=== PATIENT | male | born 1965 | race Caucasian/White ===

== ENCOUNTER 2024-03-11 16:04 | Emergency (ER) | payer OTHER ==
[~2024-03-11] VITALS: Ht 182.9 cm; Wt 150.1 kg
[2024-03-11 17:03] LABS: INFLUENZA B NAA NEGATIVE (NEGATIVE); RESPIRATORY SYNCYTIAL VIR NAA NEGATIVE (NEGATIVE)
[2024-03-11] MEDS ORDERED: HYDROCHLOROTHIA25 MG PO (17:27)
[2024-03-11] MEDS ORDERED: LISINOPRIL20 MG PO (17:27)
[2024-03-11] MEDS ORDERED: BUPROPION XL300 MG PO (17:27)
[2024-03-11] MEDS ORDERED: PREGABALIN150 MG PO (17:28)
[2024-03-11] MEDS ORDERED: ALBUTEROL/IPRATROPIUM 3 ML NEB INH ONE (17:45)
[2024-03-11] MEDS ORDERED: methylPREDNISolone SOD SUCC 125 MG/2 ML VIAL IV ONE (17:45)
[2024-03-11 17:47] LABS: BASOPHILS 1.2 % (0-2); EOSINOPHILS 1.9 % (0-6); HEMATOCRIT 46.2 % (35.0-50.0); HEMOGLOBIN 16.2 g/dL (12.0-18.0); LYMPHOCYTES 37.2 % (24-44); MCH 33.3 (27-36); MCHC 35.1 g/dl (30-36); MCV 94.8 fl (81-99); MONOCYTES 11.6 % (0-12); NEUTROPHILS 48.1 % (39-80); PLATELET COUNT 291 K/uL (140-440); RBC 4.87 M/ul (4.3-5.7); RDW 13.4 (10.5-15.0)
[2024-03-11] MEDS ORDERED: ALBUTEROL SULFATE 0.5% 2.5 MG/0.5 ML VIAL INH ONE (18:00)
[2024-03-11 18:09] LABS: ALBUMIN/GLOBULIN RATIO 0.73 (1.1-2.4); ANION GAP 14.8 (7-21); BILIRUBIN, TOTAL 0.2 ng/dL (0.2-1.0); BUN/CREATININE RATIO 15.62 (6.0-28.6); CALCIUM 8.5 mg/dL (8.5-10.1); CREATININE, SERUM 0.96 mg/dL (0.70-1.30); POTASSIUM 3.8 mmol/L (3.5-5.1); PROTEIN, TOTAL 7.1 g/dL (6.4-8.2)
[2024-03-11] MEDS ORDERED: VENTOLIN HFA18 GM INH (18:54)
[2024-03-11] MEDS ORDERED: PREDNISONE20 MG PO (18:54)
[2024-03-11] MEDS ORDERED: HYDROCODON-ACE1 EA11 PO (18:54)
[2024-03-11] MEDS ORDERED: KETOROLAC TROMETHAMINE 30 MG/ML VIAL IV ONE (19:00)
[2024-03-11] MEDS ORDERED: HYDROCODONE/ACETA 5/325 TAB PO ONE (19:00)
[2024-03-11] MEDS ORDERED: ALBUTEROL SULFATE 8 GM HOME.PACK INH ONE (19:00)
[2024-03-11] MEDS ORDERED: INHALER, ASSIST DEVICES 1 EACH SPACER MISC ONE (19:00)
[2024-03-11 19:35] VITALS: BP 161/78
--- NOTE | 2024-03-11 21:53 | EKG ---
[facility] [address] [facility] [place] [address] Signed Normal sinus rhythm Normal ECG No previous ECGs available Confirmed by Conor De MD () on 03/11/2024 9:53:36 PM Electronically Signed By: CONOR DE MD 03/11/242152 PATIENT NAME: YOSELIN VANEGAS LOGAN Electrocardiogram DATE OF : 67 PHYSICIAN: CONOR DE MD REPORT #: [id number] REPORT IS CONFIDENTIAL AND NOT TO BE RELEASED WITHOUT AUTHORIZATION
== END 2024-03-11 19:35 | disposition home or self-care (01) ==
LOC: ED 16:04
PROVIDERS: Emergency Medicine
DX: J20.9 Acute bronchitis, unspecified (principal); I10 Essential (primary) hypertension; E66.9 Obesity, unspecified; Z79.899 Other long term (current) drug therapy
CPT/HCPCS: 36415; 71045; 80053; 83880; 84484; 85025; 85379; 87502; 93005; 93010; 94640; 94664; 96374; 96375; 99285-25; J1885; J2919; U0002

== ENCOUNTER 2024-03-15 05:24 | Emergency (ER) | payer OTHER ==
[~2024-03-15] VITALS: Ht 182.9 cm; Wt 150.0 kg
[~2024-03-15 05:24] MED LIST: BUPROPION XL300 MG PO; HYDROCHLOROTHIA25 MG PO; HYDROCODON-ACE1 EA11 PO; LISINOPRIL20 MG PO; PREDNISONE20 MG PO; PREGABALIN150 MG PO; VENTOLIN HFA18 GM INH
--- OUTSIDE RECORDS SUMMARY | 2024-03-15 05:31 | XMS ---
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 Josette VISIT COUNT (12 MO.) 2 SACHA Cao TOTAL 2 NOTE: Visits indicate total known visits. ED/UCC VISIT TRACKING (12 MO.) 03/15/2024 05:24 SACHA Espinosa OR TYPE: Emergency COMPLAINT: - CONGESTION 03/11/2024 16:05 SACHA Espinosa OR TYPE: Emergency COMPLAINT: - COLD SYMPTOMS DIAGNOSES: - Acute bronchitis, unspecified - Essential (primary) hypertension - Nasal congestion - Obesity, unspecified - Other press tender long goods (current) drug therapy INPATIENT VISIT TRACKING (12 MO.) No inpatient visits to display in this time frame [email or web address]
[2024-03-15 05:45] LABS: BASOPHILS 0.4 % (0-2); HEMATOCRIT 45.2 % (35.0-50.0); HEMOGLOBIN 15.1 g/dL (12.0-18.0); LYMPHOCYTES 18.3 % (24-44); MCH 32.5 (27-36); MCHC 33.4 g/dl (30-36); MCV 97.1 fl (81-99); MONOCYTES 8.2 % (0-12); NEUTROPHILS 73.1 % (39-80); PLATELET COUNT 319 K/uL (140-440); RBC 4.66 M/ul (4.3-5.7); RDW 13.9 (10.5-15.0)
[2024-03-15] MEDS ORDERED: ALBUTEROL/IPRATROPIUM 3 ML NEB INH ONE (05:45)
[2024-03-15] MEDS ORDERED: methylPREDNISolone SOD SUCC 125 MG/2 ML VIAL IV ONE (05:45)
[2024-03-15 06:07] LABS: ALBUMIN/GLOBULIN RATIO 0.77 (1.1-2.4); ANION GAP 12.9 (7-21); BILIRUBIN, TOTAL 0.2 ng/dL (0.2-1.0); BUN/CREATININE RATIO 21.66 (6.0-28.6); CALCIUM 9.1 mg/dL (8.5-10.1); CREATININE, SERUM 1.2 mg/dL (0.70-1.30); POTASSIUM 3.9 mmol/L (3.5-5.1); PROTEIN, TOTAL 6.9 g/dL (6.4-8.2)
[2024-03-15] MEDS ORDERED: VENTOLIN HFA18 GM INH (06:43)
[2024-03-15] MEDS ORDERED: LASIX20 MG PO (06:43)
[2024-03-15] MEDS ORDERED: CEFDINIR300 MG PO (06:43)
[2024-03-15] MEDS ORDERED: METHYLPREDNISOLO4 M1 PO (06:43)
[2024-03-15] MEDS ORDERED: NASAL DECONGEST30 MG PO (06:47)
[2024-03-15 06:57] VITALS: BP 155/91
== END 2024-03-15 06:58 | disposition home or self-care (01) ==
LOC: ED 05:24
PROVIDERS: Family Medicine
DX: J18.9 Pneumonia, unspecified organism (principal); I12.9 Hypertensive chronic kidney disease with stage 1 through stage 4 chronic kidney disease, or unspecified chronic kidney disease; I50.9 Heart failure, unspecified; E66.9 Obesity, unspecified; Z79.899 Other long term (current) drug therapy
CPT/HCPCS: 36415; 71045; 80053; 83880; 85025; 85379; 94640; 96374; 99284-25; J2919

== ENCOUNTER 2024-07-30 05:11 | Inpatient (IN) | payer OTHER ==
[~2024-07-30] VITALS: Ht 182.9 cm; Wt 148.9 kg
[2024-07-30] VITALS (9 sets, daily range): BP systolic 110–203; BP diastolic 70–123
[~2024-07-30 05:11] MED LIST changes: +CEFDINIR300 MG PO; +LASIX20 MG PO; +METHYLPREDNISOLO4 M1 PO; +NASAL DECONGEST30 MG PO
[2024-07-30] MEDS ORDERED: OMEPRAZOLE40 MG PO (05:31)
[2024-07-30 05:40] LABS: BASOPHILS 0.7 % (0-2); EOSINOPHILS 0.1 % (0-6); HEMATOCRIT 51.4 % (35.0-50.0); HEMOGLOBIN 18.1 g/dL (12.0-18.0); LYMPHOCYTES 10.5 % (24-44); MCH 32.8 (27-36); MCHC 35.3 g/dl (30-36); MCV 92.9 fl (81-99); NEUTROPHILS 83.7 % (39-80); PLATELET COUNT 309 K/uL (140-440); RBC 5.53 M/ul (4.3-5.7)
[2024-07-30] MEDS ORDERED: HYDROmorphone HCL 1 MG/ML SYR IV PRN ×3 (05:45→10:00)
[2024-07-30] MEDS ORDERED: ondansetron HCL 4 MG/2 ML VIAL IV ONE (05:45)
[2024-07-30 05:52] LABS: ALBUMIN 3.6 g/dL (3.4-5.0); ALBUMIN/GLOBULIN RATIO 0.9 (1.1-2.4); ANION GAP 13.1 (7-21); BILIRUBIN, TOTAL 0.4 mg/dL (0.2-1.0); BUN/CREATININE RATIO 10.84 (6.0-28.6); CALCIUM 9.2 mg/dL (8.5-10.1); CREATININE, SERUM 0.83 mg/dL (0.70-1.30); POTASSIUM 4.1 mmol/L (3.5-5.1); PROTEIN, TOTAL 7.6 g/dL (6.4-8.2)
[2024-07-30] MEDS ORDERED: SODIUM CHLORIDE 0.9% 1,000 ML IV SCH ×2 (06:15→09:00)
[2024-07-30] MEDS ORDERED: CEFTRIAXONE SODIUM 2 GM VIAL ONE (06:44)
[2024-07-30] MEDS ORDERED: metroNIDAZOLE/SODIUM CHLORIDE 500 MG/100 ML PIGGYBACK IV ONE (07:00)
[2024-07-30] MEDS ORDERED: CEFTRIAXONE SODIUM 2 GM in SODIUM CHLORIDE 0.9% 100 ML IV ONE (07:00)
--- NOTE | 2024-07-30 07:30 | NUR ---
PT ARRIVES TO FLOOR IN WHEELCHAIR WITH AGNES ESPINAL. PT TRANSFERS HIMSELF INTO HOSPITAL BED. VS AND WEIGHT OBTAINED. IV ABX STARTED IN THE ED INFUSING INTO L AC WNL. REPORT RECEIVED FROM AGNES ESPINAL. PT HAS NO REQUESTS AT THIS TIME.
--- NOTE | 2024-07-30 07:59 | NUR ---
FOCUSED ASSESSMENT COMPLETE. PT BOWEL TONES ACTIVE IN ALL FOUR QUADRANTS, TENDER TO PALPATION IN RU/RLQ. ABDOMEN IS MODERATELY DISTENDED, PT STATES THIS IS NORMAL FOR HIM. PT CURRENTLY DENIES NAUSEA AND REPORTS HIS PAIN IS A 2/10. PT HAS AUDIBLE EXPIRATORY WHEEZE, CONFIRMED EXPIRATORY WHEEZE TO BUL WITH AUSCULTATION. BLL CLEAR BUT DIMINISHED. PT HAS OCC. COUGH, PT REPORTS HE HAD PNEUMONIA 3 MOS AGO AND THE COUGH HAS LINGERED. HE REPORTS OCC. MUCOUS PRODUCTION, THIS RN HAS NOT WITNESSED. HR IS TACHY AT 102, PT DENIES CHEST PAIN OR TIGHTNESS. IV ABX CONTINUE INFUSING WNL. PT HAS NO REQUESTS AT THIS TIME, CALL LIGHT IN REACH.
--- NOTE | 2024-07-30 08:02 | NUR ---
MD NOTIFIED OF PTs ELEVATED BLOOD PRESSURE TAKEN BOTH WITH MACHINE AND MANUALLY. MD GIVES VERBAL ORDERS VERIFIED WITH READBACK. ORDERS PLACED.
[2024-07-30] MEDS ORDERED: lisinopriL 20 MG TAB PO ONE (08:15)
[2024-07-30] MEDS ORDERED: ALBUTEROL SULFATE 0.083% 3 ML VIAL INH PRN ×2 (08:30→10:15)
[2024-07-30] MEDS ORDERED: ondansetron HCL 4 MG/2 ML VIAL IV PRN ×2 (09:00→10:00)
[2024-07-30 09:04] LABS: BILIRUBIN, URINE NEGATIVE (negative); BLOOD/HGB, URINE SMALL (Negative); KETONE, URINE NEGATIVE (Negative); LEUK ESTERASE, URINE NEGATIVE (negative); NITRITE, URINE NEGATIVE (negative)
[2024-07-30 09:11] LABS: CRYSTALS, URINE NONE SEEN (0-1+); EPITHELIAL CELLS, URINE SQUAMOUS 1+ /lpf (0-1+); WHITE BLOOD CELLS, URINE 0-1 /HPF (0-5)
[2024-07-30 09:12] LABS: BACTERIA, URINE NONE SEEN /hpf (negative); CASTS, URINE NONE SEEN \\lpf; COLLECTION TYPE, URINE CLEAN CATCH; REFLEX CULTURE, URINE No (No)
[2024-07-30] MEDS ORDERED: ENOXAPARIN SODIUM 40 MG/0.4 ML SYR SUB-Q SCH (09:58)
[2024-07-30] MEDS ORDERED: PANTOPRAZOLE SODIUM 40 MG TABEC PO SCH (09:59)
[2024-07-30] MEDS ORDERED: LACTATED RINGER'S 1,000 ML IV SCH (10:00)
[2024-07-30] MEDS ORDERED: PROCHLORPERAZINE EDISYLATE 10 MG/2 ML VIAL IV PRN (10:00)
[2024-07-30] MEDS ORDERED: OXYCODONE HCL 5 MG TAB PO PRN (10:00)
[2024-07-30] MEDS ORDERED: DOCUSATE SODIUM 100 MG CAP PO SCH (10:00)
[2024-07-30] MEDS ORDERED: SENNOSIDES/DOCUSATE 1 EA TAB PO SCH (10:01)
[2024-07-30] MEDS ORDERED: buPROPion HCL XL 300 MG TAB.XL.24H PO SCH (10:01)
[2024-07-30] MEDS ORDERED: ACETAMINOPHEN 500 MG TAB PO PRN (10:15)
[2024-07-30] MEDS ORDERED: NICOTINE 21 MG/24 HR 1 EA TDSY TD SCH (10:17)
--- NOTE | 2024-07-30 10:17 | NUR ---
DR WEEKS GIVES VERBAL ORDER FOR NICOTINE PATCH, ORDER PLACED.
[2024-07-30] MEDS ORDERED: GLUCAGON,HUMAN RECOMBINANT 1 MG/ML VIAL SUB-Q PRN (10:30)
[2024-07-30] MEDS ORDERED: IBLOOD GLUCOSE TEST STRIP 1 EA TEST XX PRN (10:30)
[2024-07-30] MEDS ORDERED: DEXTROSE 50% 50 ML SYR IV PRN ×2 (10:30)
[2024-07-30] MEDS ORDERED: DEXTROSE 5% 1,000 ML IV PRN (10:30)
--- NOTE | 2024-07-30 11:09 | NUR ---
MD NOTIFIED OF PTs UPDATED BLOOD PRESSURE. NO NEW ORDERS AT THIS TIME.
[2024-07-30] MEDS ORDERED: INSULIN LISPRO 100 UNIT/ML ML SUB-Q SCH (12:00)
[2024-07-30] MEDS ORDERED: IBLOOD GLUCOSE TEST STRIP 1 EA TEST XX SCH (12:00)
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
--- NOTE | 2024-07-30 13:18 | NUR ---
RANDELL LEON IN WITH PT. PT REPORTS DECREASED PAIN IN HIS ABDOMEN RATED 6/10, STATES "I FEEL OKAY". NO REQUESTS, CALL LIGHT AND PERSONAL BELONGINGS IN REACH.
--- NOTE | 2024-07-30 13:54 | NUR ---
SCDs IN PLACE, IVF INFUSING WNL. PT CONTINUES RESTING IN BED WATCHING TELEVISION. NO REQUESTS AT THIS TIME, CALL LIGHT IN REACH.
[2024-07-30] MEDS ORDERED: ALBUTEROL/IPRATROPIUM 3 ML NEB INH SCH (14:00)
--- NOTE | 2024-07-30 15:57 | NUR ---
PT RESTING IN BED AWAKE AND ALERT, MILDLY TREMULOUS. PT REPORTS HIS ABDOMINAL PAIN IS AN 8/10. PRN PAIN MEDICATION AND ICE PACK SUPPLIED. PT ENCOURAGED TO CALL BEFORE HIS PAIN BECOMES SO SEVERE, PT VERBALIZES UNDERSTANDING. BOWEL TONES ARE ACTIVE IN ALL FOUR QUADRANTS, PT HAS TENDERNESS IN HIS RU/LQ, DENIES NAUSEA. IV FLUSHES WNL, IVF INFUSING. VÍCTOR FROM PHARMACY ARRIVES TO SEE PT, MARY FROM RESPIRATORY THERAPY ALSO ARRIVES TO SEE PT. NO OTHER REQUESTS AT THIS TIME, CALL LIGHT IN REACH.
--- NOTE | 2024-07-30 16:20 | NUR ---
PT ASSISTED TO SHOWER. FRESH GOWN PROVIDED. PT HAS THICK CALLOUSES ON FEET. PT BACK TO BED, SHOWER CAPS WITH SHAVING CREAM APPLIED TO BILAT FEET AND ALLOWED TO SIT AT THIS TIME. ICE PACK RE-APPLIED TO PTs ABDOMEN. PT RESTING IN BED WITH HOB ELEVATED. NO REQUESTS AT THIS TIME, CALL LIGHT IN REACH.
--- NOTE | 2024-07-30 16:35 | NUR ---
MED REC COMPLETE
--- NOTE | 2024-07-30 17:33 | NUR ---
SHOWER CAPS REMOVED FROM BILAT FEET, CALLOUSES SCRUBBED AT. PT RESTING IN BED WITH HOB ELEVATED, DINNER TRAY IN FRONT OF HIM. PT REPORTS HE IS NOT VERY HUNGRY, TRAY REMOVED. PT REQUESTING DRINK AT THIS TIME - SUPPLIED. NO OTHER REQUESTS, CALL LIGHT IN REACH.
--- NOTE | 2024-07-30 18:09 | NUR ---
PT HAS VISITOR AT BEDSIDE. PUMP CLEARED. NO REQUESTS, CALL LIGHT IN REACH.
--- NOTE | 2024-07-30 19:32 | EKG ---
[facility] [address] [facility] [place] [address] Signed Sinus rhythm with premature supraventricular complexes Possible Left atrial enlargement Septal infarct , age undetermined Abnormal ECG When compared with ECG of 11-MAR-2024 17:49, premature supraventricular complexes are now present Septal infarct is now present Confirmed by Katherine Tavera MD ([id number]) on 07/30/2024 7:31:54 PM Electronically Signed By: KATHERINE TAVERA MD 07/30/241931 PATIENT NAME: VANEGASYOSELIN Electrocardiogram DATE OF : 67 PHYSICIAN: KATHERINE TAVERA MD REPORT #: [id number] REPORT IS CONFIDENTIAL AND NOT TO BE RELEASED WITHOUT AUTHORIZATION
--- NOTE | 2024-07-30 20:20 | NUR ---
ROM IS AWAKE IN BED ON ROOM AIR WATCHING TV. HOB IS ELEVATED TO 23 DEGREES.
--- NOTE | 2024-07-30 21:08 | NUR ---
PT AWAKE, ALERT AND ORIENTED, ON ROOM AIR. LUNGS COARSE BILAT W EXP WHEEZING, MOIST NON PRODUCTIVE COUGH PRESENT, DENIES SOB WITH EXERTION, REPOSITIONS SELF IN BED. ABD LARGE FIRM TENDER, LATHA, LBM 07/29. C/O 01/18 ABD CRAMPING/ACHE. MEDICATED WITH OXYCODONE 10MG PO. GENERALIZED EDEMA TO LE/ANKLES. WATCHING TV. COOPERATIVE. IVF INFUSING LAC. AWARE OF NPO AFTER MIDNIGHT.
--- NOTE | 2024-07-30 22:53 | NUR ---
RESTING, NO S/SX DISTRESS, ON ROOM AIR
[2024-07-31] VITALS (12 sets, daily range): BP systolic 117–170; BP diastolic 71–110
--- NOTE | 2024-07-31 00:13 | NUR ---
pt awake, c/o 8 abd pain, medicated with Dilaudid 1mg IV. NPO all fluids removed, IVf infusing w/o problems. visiting with family
--- NOTE | 2024-07-31 03:13 | NUR ---
resting, eyes closed, no s/sx distress, IVF infusing w/o problems. NPO for am procedure
[2024-07-31 05:19] LABS: BASOPHILS 0.6 % (0-2); EOSINOPHILS 1.3 % (0-6); HEMATOCRIT 45.2 % (35.0-50.0); HEMOGLOBIN 15.6 g/dL (12.0-18.0); MCH 32.5 (27-36); MCHC 34.5 g/dl (30-36); MCV 94.3 fl (81-99); MONOCYTES 9.7 % (0-12); NEUTROPHILS 65.4 % (39-80); PLATELET COUNT 261 K/uL (140-440); RDW 13.1 (10.5-15.0)
--- NOTE | 2024-07-31 05:26 | NUR ---
used call light c/o 02/17 abd pain, medicated with 10mg po Oxycodone with sip of water. Pt NPO. has tolerated well, does own oral care with oral swabs. On room air. lungs coarse, moist non productive cough present.IVF infusing w/o problems. Bladder scanned as there has been no Urinary output since 1999, when I emptied his urinal. bladder scanner showed less than 90cc in bladder. Pt staed, "Am I supposed to keep the urine? I went once when my girlfriend was here and like about 3am". Instructed to use urinal and notify nursing personnel as we need to track his intake and output specially since he had IVF infusing. stated "Oh ok, me bad, I'll use that container". got to edge of bed and tried to use urinal w/o success. no sob but increased resp rate noted. back to normal when back to bed. will continue to observe, has tolerated NPO status well. may be having surgery today
[2024-07-31 05:38] LABS: ALBUMIN 2.7 g/dL (3.4-5.0); ALBUMIN/GLOBULIN RATIO 0.75 (1.1-2.4); BILIRUBIN, TOTAL 0.5 mg/dL (0.2-1.0); BUN/CREATININE RATIO 11.7 (6.0-28.6); CALCIUM 8.3 mg/dL (8.5-10.1); CREATININE, SERUM 0.94 mg/dL (0.70-1.30); MAGNESIUM 1.9 mg/dL (1.8-2.4); PHOSPHORUS, INORGANIC 3.3 mg/dL (2.5-4.9); PROTEIN, TOTAL 6.3 g/dL (6.4-8.2)
--- NOTE | 2024-07-31 05:54 | NUR ---
Pt voided 175cc light tea colored urine using urinal, walked to brp too, tolerated well, tacheipneic present with exertion.
--- NOTE | 2024-07-31 07:41 | NUR ---
MORNING REPORT RECIEVED FROM AGNES CEDEÑO. PT AWAKE LAYING IN BED. PT REPORTS NO PAIN AT THIS TIME AND HAS NO CONCERNS, PT CALL LIGHT IN REACH.
[2024-07-31] MEDS ORDERED: CEFTRIAXONE SODIUM 2 GM VIAL ONE (08:39)
[2024-07-31] MEDS ORDERED: CEFTRIAXONE SODIUM 2 GM in SODIUM CHLORIDE 0.9% 100 ML IV SCH (09:00)
[2024-07-31] MEDS ORDERED: lisinopriL 20 MG TAB PO SCH (09:00)
[2024-07-31] MEDS ORDERED: metroNIDAZOLE/SODIUM CHLORIDE 500 MG/100 ML PIGGYBACK IV SCH (09:00)
--- NOTE | 2024-07-31 09:00 | NUR ---
PT LAYING IN BED, PT HAS NO PAIN AT THIS TIME, PT IS WAITING TO SEE MD WEEKS, ABOUT POSSIBLE SURGERY TODAY. PT HAS NO OTHER CONCERNS AT THIS TIME CALL LIGHT IN REACH, IS IN ROOM SITTING BED SIDE.
--- NOTE | 2024-07-31 10:35 | NUR ---
MD WEEKS INTO SEE PT MD WEEKS NOTIFIED PT THAT HE WILL HAVE SURGERY TODAY. PT AGREEABLE AT THIS TIME CALL LIGHT IN REACH PRE OP PAPER WORK IS SIGNED AND COMPLETED.
[2024-07-31] MEDS ORDERED: KETOROLAC TROMETHAMINE 30 MG/ML VIAL ONE (11:07)
[2024-07-31] MEDS ORDERED: DEXAMETHASONE SOD PHOS 4 MG/ML VIAL ONE (11:07)
[2024-07-31] MEDS ORDERED: fentaNYL citrate 100 MCG/2 ML VIAL ONE ×2 (11:07→13:11)
[2024-07-31] MEDS ORDERED: propofoL 200 MG/20 ML VIAL ONE (11:07)
[2024-07-31] MEDS ORDERED: SUCCINYLCHOLINE IN 0.9% NACL 200 MG/10 ML SYRINGE ONE (11:07)
[2024-07-31] MEDS ORDERED: ROCURONIUM BROMIDE 50 MG/5 ML SYR ONE ×2 (11:07→12:28)
[2024-07-31] MEDS ORDERED: LIDOCAINE HCL 2% 5 ML SDV ONE (11:07)
[2024-07-31] MEDS ORDERED: MIDAZOLAM HCL 2 MG/2 ML VIAL ONE (11:07)
[2024-07-31] MEDS ORDERED: ondansetron HCL 4 MG/2 ML VIAL ONE (11:07)
[2024-07-31] MEDS ORDERED: SUGAMMADEX SODIUM 200 MG/2 ML ML ONE ×2 (11:07→13:28)
[2024-07-31] MEDS ORDERED: iopamidoL 30 ML VIAL ONE (11:09)
[2024-07-31] MEDS ORDERED: SODIUM CHLORIDE 0.9% 60 ML IV ONE (11:09)
--- NOTE | 2024-07-31 11:23 | NUR ---
PT LEFT FLOOR VIA STRETCHER WITH STEAMBLASTER'S. PT HAS NO COCNERNS AT THIS TIME. PT TO RETURN TO FLOOR TO SAME ROOM.
--- NOTE | 2024-07-31 12:11 | NUR ---
PT IS STILL WITH CERTIFED REFRIGERATION OPERATOR'S IN SURGERY.
[2024-07-31] MEDS ORDERED: LABETALOL HCL 20 MG/4 ML VIAL ONE (12:36)
[2024-07-31] MEDS ORDERED: ACETAMINOPHEN 1,000 MG/100 ML VIAL ONE (13:31)
[2024-07-31] MEDS ORDERED: ESMOLOL HCL 100 MG/10 ML VIAL IV ONE (13:31)
--- NOTE | 2024-07-31 14:19 | NUR ---
07/31/24 1419 Alyssa Lazar 1401-PT ARRIVES TO PACU VIA STRETCHER, RESTING SEMI FOWLERS, PT NOT RESPONISVE TO NOXIOUS STIMULI, OPA IN PLACE, REQUIRING MANUAL JAW THRUST, O2 SATS 87% ON 8L VIA MASK, O2 INCREASED TO 15L AND SATS IMPROVED TO 91%. 1405-PT NO LONGER REQUIRING MAUNAL JAW THRUST, OPA REMAINS IN PLACE, VSS.
--- NOTE | 2024-07-31 14:50 | NUR ---
PT RECIEVED TO FLOOR VIA STRATCHER, FROM OR, RN. PT WAS ABLE TO MOVE FROM STRETCHER TO MED/SURG BED. PT HAS 4 LAP SITES, AND A SHARI DRAIN IN THE RUQ. PT DRAIN OUTPUT WAS 10ML OF RED FLUID. PT HAS NO PAIN AT THIS TIME AND DENIES NAUSEA. PT DID ARRIVE ON 6L 02 NC, CPOX AND FLUIDS IN PLACE . PT MAY HAVE UNDIAGNOSED SA. PT HAS NO CONCERNS AT THIS TIME CALL IN REACH.
--- NOTE | 2024-07-31 15:42 | NUR ---
PT WOKE UP STILL DROWSY FROM ANESTHESIA IN BED AND WAS ATTEMPTING TO SIT UP AND VOID. PT BED ALARM SOUNDED AND RN'S ARRIVED IN ROOM TO THE PT ATTEMPTING TO LEAVE BED WITH URINE IN BED, AND CPOX PROBE ON THE FLOOR. PT WAS MOVED FROM 115 TO 121 AND HAS NO PAIN AT THIS TIME. PT HAS NO CONCERNS AT THIS TIME AND IS ON 6L O2 NC WITH CPOX IN PLACE PERAMITERS 88-92. PT HAS EYES CLOSED CHEST RISE EQUAL BILAT. PT BED ALARM ON AND CURTAIN LEFT OPEN FOR PT SAFETY.
--- NOTE | 2024-07-31 15:46 | NUR ---
I HEARD THIS PATIENT GRUNTING AND MOVING AROUND FROM THE NURSES STATION. I WENT IN TO SEE WHAT WAS HAPPENEING AND HE WAS TRYING TO GET OUT OF BED OVER THE SIDE RAILS. I TRIED TO DIRECT HIM BACK IN BED AND ASK HIM WHAT WAS WRONG AND HE WAS NOT ANSWERING MY QUESTIONS. HE TOOK OFF HIS PULSE OX AND STARTED URINATING IN THE BED, STILL NOT REALLY RESPONDIND TO ME. I CALLED FOR HELP AND WE ASSSISTED HIM BACK INTO A CENTERED POSTION IN THE BED. RN AND CHARGE AWARE.
--- NOTE | 2024-07-31 16:42 | NUR ---
PT CONTINUES TO SHOW PROGRESS IN RECOVERY. PT HAS NO PAIN AT THIS TIME AND FAMILY IS CURRENTLY IN ROOM. PT HAS NO CONCERNS AT THIS TIME.
--- NOTE | 2024-07-31 18:03 | NUR ---
PT LAYING IN BED, PT HAS NO CONCERNS AT THIS TIME PT NOTED PAIN 6-10 BUT DENIED PAIN MEDICATION AT THIS TIME. PT HAS CALL LIGHT IN REACH.
--- NOTE | 2024-07-31 18:38 | NUR ---
THIS RN FOUND PT DOWN BY ROOM 124. PT HAS TURNED OFF BED ALARM, REMOEVED IV, CPOX, AND SCDS, AND THE URINATED ON THE FLOOR IN THEIR ROOM. PT THEN STATED " HE WANTED TO GO FOR A WALK". PT RETURNED TO BED, CPOX, OXYGEN, SCDS IN PLACE. PT IV HAD CATH INTACT, NO REDNESS OR SWELLING AT SITE. MD WEEKS CONTACTED AND DESI SAID IT WAS OK TO LEAVE OUT IV. PT BED ALARM ON AND PT CURTAIN OPEN FOR PT SAFETY. PT CURRENTLY ON 2L NC O2 AND O2 SAT 88-92% PT CALL LIGHT IN REACH.
--- NOTE | 2024-07-31 18:52 | NUR ---
PT LAYING IN BED WITH NO CONCERNS AT THIS TIME. PT HAS CALL LIGHT IN REACH.
--- NOTE | 2024-07-31 19:55 | NUR ---
Pt awake, bed alrm in place. O2 2LNC CPOX in place, lungs coarse. tacheipneic when up to edge of bed and standing. resp 26-30. pulse 115, sats stayed put at 92-94%. denies lightheadness. IS at bedside, up to 2000 when hands on demonstration done. encouraged to use 10x/hr. voided using urinal, clear yellow urine. Back to bed. required minimum of assist. SCDS in place. c/o 10/10 abd pain, abd large firm, tender, 4 lap sites and amita tube dressing with old drainage, mid 2 lap sites changed as the edges were curling up after pt scratched them off. replaced. abd incision with ss drainage. new dressing in place. LATHA, stated passing gas, no bm. Alert and oriented, impulsive, instructed on bed alarm and call light, staed understanding
--- NOTE | 2024-07-31 20:15 | NUR ---
ANGEL STATES THAT HE FEELS LIKE THE NEBULIZED TREATMENTS HELP HIM BREATH BETTER THAN THE INHALERS THAT HE HAS AT HOME. IN MY OPINION, ANGEL WOULD BENEFIT FROM A HOME NEBULIZER WITH DUONEB TID, ALBUTEROL Q2 PRN, AND PULMICORT BID UPON DISCHARGE. ANGEL IS SITTING IN BED AWAKE W/HOB ELEVATED TO 54 DEGREES ON A 2L NC. ANGEL STATES THAT HE DOES NOT USE HOME OXYGEN, CPAP, OR BIPAP.
--- NOTE | 2024-07-31 21:00 | NUR ---
awake, O2 2LNC, post op CPOX on at bedside, alert and oriented, no further c/o abd pain, visiting with family
--- NOTE | 2024-07-31 23:32 | NUR ---
Eyes closed, on 2LNC cpox on at bedside, no s/sx distress. scds in place
[2024-08-01 01:47] VITALS: BP 150/92
--- NOTE | 2024-08-01 02:09 | NUR ---
AWAKENS EASILY, ON 2LNC, LUNGS IMPROVED, CRACKLES PRESENT, DENIES SOB. TOLERATED STANDING UP MORE THATN EARLIER. STILL TACHEIPNEIC AND TACHYCHARDIC WITH EXERTION, SATS DO NOT CHANGE. VOIDED USING URINAL, BACK TO BED. SCDS IN PLACE. ABD DISTENTION PRESETN, 4 LAP SITES W 2 W OLD DRAINAGE. TASHIA PATENT DRAINING SANGUINEOUS DRAINAGE. EMPTIED. DENIES C/O PAIN, STATED PASSING GAS EARLIER. ALRMS IN PLACE, HOB ELEVATED
--- NOTE | 2024-08-01 02:37 | NUR ---
ANGEL IS ASLEEP ON A 2L NC W/HOB ELEVATED.
--- NOTE | 2024-08-01 03:05 | NUR ---
RESTLESS IN BED. AWAKENS EASILY, C/O 7/10 ABD PAIN, STATED PASSING GAS, ABD DISTENDED, TENDER, 4 LAP SITES AND SHARI TUBE INSERTION AREA W/O CHANGES. MEDICATED WITH OXYCODONE 10MG PO AND TYLENOL 1000MG PO. REASSURED AND EFFORTS PRAISED. O2 2LNC IN PLACE, POST OP CPOX ON AT BEDSIDE, SATS 95%, P111, RESP 20. SCDS IN PLACE.
[2024-08-01 05:12] VITALS: BP 126/89
[2024-08-01 05:13] LABS: BASOPHILS 0.4 % (0-2); EOSINOPHILS 0.4 % (0-6); HEMATOCRIT 45.2 % (35.0-50.0); HEMOGLOBIN 15.4 g/dL (12.0-18.0); LYMPHOCYTES 6.4 % (24-44); MCHC 34.1 g/dl (30-36); MCV 93.9 fl (81-99); MONOCYTES 6.5 % (0-12); NEUTROPHILS 86.3 % (39-80); PLATELET COUNT 284 K/uL (140-440); RBC 4.81 M/ul (4.3-5.7); RDW 12.9 (10.5-15.0)
[2024-08-01 05:27] LABS: ALBUMIN 2.7 g/dL (3.4-5.0); ALBUMIN/GLOBULIN RATIO 0.69 (1.1-2.4); ANION GAP 10.6 (7-21); BILIRUBIN, TOTAL 0.4 mg/dL (0.2-1.0); BUN/CREATININE RATIO 12.74 (6.0-28.6); CALCIUM 8.6 mg/dL (8.5-10.1); CREATININE, SERUM 1.02 mg/dL (0.70-1.30); MAGNESIUM 2.1 mg/dL (1.8-2.4); PHOSPHORUS, INORGANIC 2.6 mg/dL (2.5-4.9); POTASSIUM 4.6 mmol/L (3.5-5.1); PROTEIN, TOTAL 6.6 g/dL (6.4-8.2)
--- NOTE | 2024-08-01 06:31 | NUR ---
PT AWAKE, ALERT AND ORIENTED, C/O ABD PAIN, MEDICATED WITH 10MG OXYCODONE. CPOX IN PLACE, SATS 96% 2L, TITRATED TO 1L NC. ABD LAP SITES 2 WITH OLD DRAINAGE, SHARI TUBE WITH SS DRAINAGE. USING URINAL, VOIDING QS YELLOW URINE. LUNGS WITH CRACKLES AND DIM AT BASES, MOIST NON PROD COUGH PRESENT. TACHY AT 111, RESP 19
--- NOTE | 2024-08-01 06:41 | NUR ---
PT REQUESTS TO WALK TO BRP, VOIDED UNMEASURABLE AMOUNT. STATED PASSING GAS, NO BM. BACK TO BED, TACHEIPNEIC AND TACHYCHARDIC ON RETURN. 2LNC. ABD DRESSING NO CHANGES. TASHIA NO CHANGE, SCDS INPLACE. DIAPHORETIC, CLEAN GOWN CHANGED. "I ALWAYS SWEAT A LOT AT NIGHT" STATED, DENIES CARDIAC HX EXCEPT FOR HTN
--- NOTE | 2024-08-01 07:23 | OR ---
[facility] [address], [place] [address] Signed DATE OF OPERATION: 07/31/2024 SURGEON: Marah Weeks MD PREOPERATIVE DIAGNOSES: Cholelithiasis with cholecystitis with biliary colic. POSTOPERATIVE DIAGNOSES: 1. Cholelithiasis with cholecystitis with biliary colic. 2. Fatty liver. 3. Cholesterolosis. PROCEDURES: 1. Laparoscopic lysis of adhesions (20 minutes). 2. Laparoscopic cholecystectomy without intraoperative cholangiogram (prolonged and difficult at 2 hours with extra nurse). 3. Subhepatic drain placement. ESTIMATED BLOOD LOSS: Minimal. FINDINGS: Zaheer had adhesions in his right upper quadrant, probably from his appendectomy many years ago. It took 20 minutes to bring those down laparoscopically before we could add any additional trocars. His gallbladder was very distended, edematous with daily color. He did have two large gallstones. We did not perform the intraoperative cholangiogram because of all the inflammation in the triangle of Calot. He also has a fatty liver a bit stiff and up underneath the rib cage which made the surgery even more technically difficult. We had to add a fan retractor in the midline and bring it down to push the transverse colon and the transverse mesocolon down out of way so we could get to the neck of the gallbladder. We needed an extra nurse. The surgery took a full 2 hours without the intraoperative cholangiogram which is more than double what we normally take. In this way it was prolonged and difficult. INDICATIONS: Zaheer is a 59-year-old obese diabetic gentleman, who is known to have history of hepatitis C virus. He was treated, but his numbers did not come down far enough, so he is going to be re-treated. Unfortunately, his son was killed on the highway from a semi-truck about four months ago. They cremated his son and they waited for the winter weather to clear further in two days. That way all the family can come and be Electronically Signed By: MARAH WEEKS MD 08/01/24 0723 PATIENT NAME: ZAHEER VANEGAS OPERATIVE REPORT DATE OF : 67 REPORT #: [id number] PHYSICIAN: MARAH WEEKS MD PCP: NOEMY AMOR MD REPORT IS CONFIDENTIAL AND NOT TO BE RELEASED WITHOUT AUTHORIZATION [facility] [address] [place] [id number] Signed available. Zaheer has been depressed and he had to double his bupropion. He decided to quit taking the lisinopril for five days. He said he was constipated, so he took some methamphetamine from his friend. He said that normally makes him have a bowel movement. He ended up in the emergency room with right upper quadrant abdominal pain and vomiting for about half a day. His white count was elevated, but liver function tests were fine. He was hypertensive with a systolic blood pressure over 200 and a diastolic blood pressure over 100. An ultrasound showed that his liver was unremarkable. There was a large stone in the neck of the gallbladder. The gallbladder wall was not thickened. There was a positive Mena sign and the common bile duct was normal at 3 mm. I have been asked to admit him as a general surgeon on-call. We had given him Rocephin and Flagyl. I explained to Zaheer I could not operate on him until we could get that blood pressure under control. We went ahead and gave him his usual lisinopril and his other medications and we had him liquid diet for a day. By the next morning, he said he was feeling much better. His blood pressure was down in the systolics 160s. We kept him on Rocephin and Flagyl. I also brought a brochure from the office to show him the gallbladder. We discussed the location and function of the gallbladder. We discussed laparoscopic versus open cholecystectomy. He understands there is risk including, but not limited to bleeding, infection, scarring, change in contour of the skin, damage to bowel, damage to main bile duct, incisional hernias and other unforeseen comorbidities. He understands expected intraop and postop course. We are hoping to get him to his son's in two days. He and his had expressed understanding and wished to proceed. DESCRIPTION OF PROCEDURE: Zaheer was taken in the operating room and placed in the supine position under general endotracheal tube anesthesia. He was on preoperative Rocephin and Flagyl. He was on preoperative Lovenox. SCDs were in place. He was prepped and draped in the usual sterile fashion. We started with the Laureen trocar in the supraumbilical trocar site. The abdomen was insufflated. We immediately could see all the adhesions in the right upper quadrant from the omentum in the fat. We placed his mid epigastric trocar site and we used our laparoscopic Avis scissors, carefully dissected out the fat from the abdominal wall all the way almost to the right colon. That gave us free access to the upper abdomen in the right upper quadrant. We can see his liver is a bit pale and consistent with fatty liver. His gallbladder was quite distended, very edematous and it took on a daily color. We had to introduce the fan retractor to push the bowel down towards the neck of the gallbladder. We then placed our two right subcostal trocar sites along with the subxiphoid trocar site under direct visualization without difficulty. We had an extra nurse scrub in to help hold the fan retractor and help hold the gallbladder up in the right upper quadrant. It took us a while to very carefully dissect through a significant amount of adipose tissue around the neck of the gallbladder and down on the triangle of Calot. The triangle of Calot was pretty inflamed and indurated around the cystic duct. We went carefully with our [place] Electronically Signed By: MARAH WEEKS MD 08/01/24 0723 PATIENT NAME: ZAHEER VANEGAS OPERATIVE REPORT DATE OF : 67 REPORT #: [id number] PHYSICIAN: MARAH WEEKS MD PCP: NOEMY AMOR MD REPORT IS CONFIDENTIAL AND NOT TO BE RELEASED WITHOUT AUTHORIZATION [facility] [address] [place], [place] [address] Signed dissector and finally made our way around the cystic duct. We did not feel that the intraoperative cholangiogram would be beneficial at this time because of all the dissection and the fact the two stones were quite large and the labs were fine. We put four clips across the cystic duct stump under direct visualization. We left three clips on the cystic duct stump and sharply divided the cystic duct up near the gallbladder. We put several clips on the cystic artery and it was divided. It took very slow careful dissection bluntly and with the cautery to get the gallbladder up and off the gallbladder fossa. We finally had it free and into the EndoCatch bag. We had to use our 30 degree scope and frequently paused and reposition and so forth. After this, the right upper quadrant was irrigated and suctioned out until clear. We placed our 7 mm flat Austin drain in the subhepatic space and out through the right side of the abdomen just below the costal margin. It was held in place with a 2-0 nylon suture. We then used our laparoscopic suturing device to pass 0-Vicryl suture on either side of the fascia subxiphoid and mid epigastric trocar sites. We tied these down to close the fascia primarily. All the gas had been allowed to escape. The remaining trocars were removed. We had to extend the supraumbilical trocar site about 1 cm so that the total length was about 2 cm. We very carefully were able to pull the gallbladder out with the help of some Pean clamps. He had one stone at least 2 cm a little less than that. We then closed the fascia with interrupted [id number] 0-Vicryl sutures. Local anesthetic was injected into all trocar sites. Each trocar site was irrigated and suctioned out until clear. The skin and dermis of each trocar site were closed with interrupted 3-0 subcuticular Monocryl sutures. Dry gauze and tape were applied to all incisions. Zaheer was then awakened from his anesthesia, extubated in the OR, and taken to recovery room in stable condition. Marah Weeks MD ALB/MODL /[id number] cc: MD Noemy Buitrago MD Electronically Signed By: MARAH WEEKS MD 08/01/24 0723 PATIENT NAME: ZAHEER VANEGAS OPERATIVE REPORT DATE OF : 67 REPORT #: [id number] PHYSICIAN: MARAH WEEKS MD PCP: NOEMY AMOR MD REPORT IS CONFIDENTIAL AND NOT TO BE RELEASED WITHOUT AUTHORIZATION [facility] [address] [place], [place] [address] Brennan Lopes Copies: MARAH WEEKS MD ~ Electronically Signed By: MARAH WEEKS MD 08/01/24 0723 PATIENT NAME: VANEGASZAHEER LOGAN OPERATIVE REPORT DATE OF : 67 REPORT #: [id number] PHYSICIAN: MRAAH WEEKS MD PCP: NOEMY AMOR MD REPORT IS CONFIDENTIAL AND NOT TO BE RELEASED WITHOUT AUTHORIZATION
--- NOTE | 2024-08-01 07:23 | OR ---
[place] [id number] [place] [address] Signed DATE OF OPERATION: 07/31/2024 SURGEON: Marah Weeks MD PREOPERATIVE DIAGNOSES: Cholecystitis, cholelithiasis and biliary colic. POSTOPERATIVE DIAGNOSES: 1. Cholecystitis, cholelithiasis and biliary colic. 2. Fatty liver. 3. Cholesterolosis. PROCEDURES: 1. Laparoscopic lysis of adhesions (20 minutes). 2. Laparoscopic cholecystectomy without intraoperative cholangiogram (prolonged and difficult at 2 hours and an extra nurse scrubbed in). 3. Subhepatic drain placement. ESTIMATED BLOOD LOSS: Minimal. FINDINGS: DICTATION ENDS HERE. Marah Weeks MD ALB/MODL /[id number] Electronically Signed By: MARAH WEEKS MD 08/01/24 0723 PATIENT NAME: YOSELIN VANEGAS OPERATIVE REPORT DATE OF : 67 REPORT #: [id number] PHYSICIAN: MARAH WEEKS MD PCP: MACIE AMOR MD REPORT IS CONFIDENTIAL AND NOT TO BE RELEASED WITHOUT AUTHORIZATION [facility] [address] [facility] [place] [address] Signed Copies: ~ Electronically Signed By: MARAH WEEKS MD 08/01/[address] PATIENT NAME: VANEGASYOSELIN LOGAN OPERATIVE REPORT DATE OF : 67 REPORT #: [id number] PHYSICIAN: MARAH WEEKS MD PCP: MACIE AMOR MD REPORT IS CONFIDENTIAL AND NOT TO BE RELEASED WITHOUT AUTHORIZATION
--- NOTE | 2024-08-01 07:33 | NUR ---
MORNING REPORT RECIEVED FROM AGNES CEDEÑO. PT LAYING IN BED WITH WARM PACK ON ABD FOR COMFORT. PT IS HOPING TO BE DC'D TODAY SO THAT HE CAN GO TO HIS SONS . PT HAS NO CURRENT CONCERNS AT THIS TIME CALL LIGHT IN REACH.
--- NOTE | 2024-08-01 07:50 | NUR ---
Hourly rounding. board has been updated and call light has beenplaced within reach
[2024-08-01] MEDS ORDERED: OXYCODONE HCL10 MG PO (08:19)
[2024-08-01] MEDS ORDERED: TYLENOL EXTRA500 MG PO (08:20)
--- NOTE | 2024-08-01 08:40 | NUR ---
PT LAYING IN BED BED, PT HAS NO COMPLAINTS OF PAIN AT THIS TIME. PT SURGICAL SITES ARE CDI. PT HAS CALL LIGHT IN REACH.
[2024-08-01] MEDS ORDERED: AMOX TR-K CLV1 EAC1 PO (09:08)
[2024-08-01 09:22] VITALS: BP 138/90
--- NOTE | 2024-08-01 09:57 | NUR ---
UR CLINICAL REVIEW: PEPE-PER MCG REVIEW MEETS INPT FOR CHOLEYSTECTOMY [facility] INPT 07/30/24 @ 1005 ORDER MATCHES REG CLINICAL [facility] FOR AUTH REVIEW ANTICIPATE DC TODAY PER AM MEETING 08/03/24
[2024-08-01] MEDS ORDERED: AMOXICILLIN/CLAVULANATE K 875 MG TAB PO ONE (10:00)
--- NOTE | 2024-08-01 10:10 | NUR ---
PT SEEN BY MD WEEKS AND SURGICAL DRESSING REMOVED AND OPEN TO AIR. PT WILL BE DC'D TODAY AND PT IS AGREEABLE. PT HAS NO OTHER COCNERNS AT THIS TIME CALL LIGHT IN REACH.
[2024-08-01 10:22] VITALS: BP 138/90
[2024-08-01 10:39] VITALS: BP 154/107
--- NOTE | 2024-08-01 11:00 | NUR ---
PT SITTING ON EDGE OF BED PT READY TO BE DC'D. PT EDUCATION ON HOME DRAIN CARE WAS DONE WELL HOW TO CHART OUTPUT OF DRAIN. PT HAS NO FURTHER QUESTIONS ABOUT CARE AND HAS DC PAPER WORK. PT LEFT UNIT VIA WHEEL CHAIR WITH MED SPECIALIST.
--- NOTE | 2024-08-01 13:15 | DS ---
[facility] [address] [place], [place] [address] Signed ADMISSION DATE: 07/30/2024 DISCHARGE DATE: 08/01/2024 FINAL DIAGNOSES: 1. Acute cholecystitis and cholelithiasis. 2. Fatty liver. 3. Cholesterolosis. 4. Productive cough with phlegm. 5. Tachycardia. 6. Hypertension. PROCEDURES: 1. Laparoscopic cholecystectomy without intraoperative cholangiogram (prolonged and difficult). 2. Laparoscopic lysis of adhesions. 3. Subhepatic drain placement. HISTORY OF PRESENT ILLNESS: Zaheer is a 59-year-old obese diabetic gentleman, who was having right upper quadrant abdominal pain and vomiting for about half a day. Apparently, he went through this a couple of years ago. He knows from a CT scan that he has cholelithiasis from two years ago. He never followed up when the pain went away. Unfortunately, his son was run over by a semi-truck on the highway and four months ago. They cremated the body and they are planning on having his tomorrow now that the weather is cleared, so the family can all be here. He has been depressed and noncompliant with his medications. They doubled his bupropion, but he was not taking his lisinopril for at least five days. He came into the emergency room for evaluation because of the pain. His systolic blood pressure was over 200 and his diastolic blood pressure was over 100. His heart rates always been over 100 up to about 118. His white blood cell count was elevated, but the liver function tests were fine. The ultrasound confirmed that his liver was okay, but he had a large stone in the neck of the gallbladder. The gallbladder wall was not thickened. He had a positive Mena sign and common bile duct was normal at 3 mm. I have been asked to admit him as a general surgeon on-call. HOSPITAL COURSE: Zaheer was admitted as above and started on Rocephin and Flagyl. I met with him first thing in the morning and we added back his lisinopril and his other medications by mouth. We allowed him clear liquid diet. We kept him on Rocephin and Flagyl. Within a few hours, his systolic blood pressure came down to the 160s. We took him to surgery the following day and he underwent a prolonged and difficult laparoscopic cholecystectomy without intraoperative cholangiogram. It took 2 hours and an extra Electronically Signed By: MARAH WEEKS MD 08/01/24 1315 PATIENT NAME: ZAHEER VANEGAS DISCHARGE SUMMARY DATE OF : 67 REPORT #: [id number] PHYSICIAN: MARAH WEEKS MD PCP: MACIE AMOR MD REPORT IS CONFIDENTIAL AND NOT TO BE RELEASED WITHOUT AUTHORIZATION [facility] [address] [place], [place] [address] Signed nurse and an extra fan retractor. We had to do laparoscopic lysis of adhesions for at least 20 minutes. We left a drain in the subhepatic space. He did well both intraop and postop. We kept him overnight since it was getting late in the day plus he is chronically ill and does not seem to have tremendous support at home. Also his medical insight seems to be poor. This morning, he is eating breakfast and he has thin serosanguinous fluid in the drain. His abdomen is significantly protuberant at baseline, but it is soft and nontender this morning. He still has a productive cough with phlegm. He said the nebulizer has been great. He would prefer to have those rather than metered dose inhalers at home. Due to his progress, we are going to be discharging him to home. DISCHARGE PLANS AND MEDICATIONS: Zaheer will be discharged home with a prescription for oxycodone immediate release 10 mg tablets one p.o. q.8 hours p.r.n. for severe postoperative pain. We will dispense 15 tablets with no refills. After that, he can go back to his chronic hydrocodone 7.5 mg tablets. He can also supplement with some Tylenol [id number] postoperative pain, which can be purchased [id number]. In addition, we are going to give him Augmentin 875 mg one p.o. b.i.d. for five days. We will dispense 10 tablets with no refills. His white count may be from his gallbladder, but it could be from his lungs as well. I have encouraged him to be medically compliant despite his depression and family issues. In addition, he is tachycardic and he did use some methamphetamines last week because he was constipated. Not sure why he is tachycardic, whether it is his acute illness or just chronic at baseline or it is from his methamphetamine use. He needs to address that with his primary care provider. In addition, he really likes the nebulizers for his lungs and thinks that is much better than the metered-dose inhalers. That is something we will have to discuss with his primary care provider. We will have our nurses teach him the drain care and will leave that in place. I will have him back in the office in about 7 to 10 days for followup and we can remove the drain at that time. He is welcome to go to his son's tomorrow. Of course, he can continue all his chronic medications at home. He is already back on a regular diet. He can perform his activities of daily living. We have already removed all the dressings. He is welcome to shower and bathe as usual with water directly over the incisions and his drain. He should not do any heavy pushing, pulling, or lifting over about 20 pounds. He has expressed understanding and agrees with the above plan. Marah Weeks MD ALB/MODL Electronically Signed By: MARAH WEEKS MD 08/01/24 1315 PATIENT NAME: ZAHEER VANEGASN DISCHARGE SUMMARY DATE OF : 67 REPORT #: [id number] PHYSICIAN: MARAH WEEKS MD PCP: MACIE AMOR MD REPORT IS CONFIDENTIAL AND NOT TO BE RELEASED WITHOUT AUTHORIZATION [facility] [address] [place], [place] [address] Signed /[id number] cc: MD Dr. Carlos Pat Dr., MD Copies: MARAH WEEKS MD ~ Electronically Signed By: MARAH WEEKS MD 08/01/24 1315 PATIENT NAME: ZAHEER VANEGAS DISCHARGE SUMMARY DATE OF : 67 REPORT #: [id number] PHYSICIAN: MARAH WEEKS MD PCP: MACIE AMOR MD REPORT IS CONFIDENTIAL AND NOT TO BE RELEASED WITHOUT AUTHORIZATION
--- NOTE | 2024-08-02 12:16 | PATH ---
[facility] [address] [place], [place] [address] Signed SPECIMEN(S): A GALLBLADDER SPECIMEN SOURCE: A. GALLBLADDER CLINICAL HISTORY: Acute cholecystitis FINAL PATHOLOGIC DIAGNOSIS: Gallbladder, cholecystectomy: - Acute and chronic calculous cholecystitis. JVR:clv MICROSCOPIC EXAMINATION: Histologic sections of all submitted blocks are examined by light microscopy. These findings, together with the gross examination, support the pathologic diagnosis. GROSS DESCRIPTION: The specimen, labeled and designated "Cristal Vanegas, gallbladder and stones per requisition," is received in formalin and consists of Specimen: Surgically disrupted gallbladder. Dimensions: 8.7 x 4.8 x 3.6 cm. Serosa: Smooth. Cystic Duct: Obstructed. Calculi: Presentbrown and multifaceted. Mucosa: Brown and velvety to trabecular. Wall thickness: 0.4 to 0.5 cm. Lymph node: No pericystic lymph nodes are grossly identified. Additional: None. Coremaker Floor sections are submitted in (A1). AA (under the direct supervision of a pathologist) The Gross Description was prepared using a voice recognition system. The report was reviewed for accuracy; however, sound-alike word errors, addition and/or deletions may occur. If there is any question about this report, please contact Client Services. PERFORMING LABORATORY: Technical component was performed by [facility], [address] [place] [id number] (CLIA# [id number]). Professional interpretation was performed by [facility] [place], [address] PATIENT NAME: YOSELIN VANEGAS PATHOLOGY DATE OF : 67 REPORT #: [id number] PHYSICIAN: [facility] PATHOLOGY PCP: MACIE AMOR MD REPORT IS CONFIDENTIAL AND NOT TO BE RELEASED WITHOUT AUTHORIZATION [facility] [address] [place], [place] [address], [place] [address] Signed [address] [place] [address] (CLIA#: [id number]). Diagnostician: Nino Mcfarland MD Pathologist Electronically Signed 08/02/2024 Copies: ~ PATIENT NAME: YOSELIN VANEGAS PATHOLOGY DATE OF : 67 REPORT #: [id number] PHYSICIAN: [facility] PATHOLOGY PCP: MACIE AMOR MD REPORT IS CONFIDENTIAL AND NOT TO BE RELEASED WITHOUT AUTHORIZATION
== END 2024-08-01 11:00 | disposition home or self-care (01) | DRG 418 ==
LOC: ED 05:11 → MS 05:13
PROVIDERS: Emergency Medicine; ADMIT Colon & Rectal Surgery; ATTEND Colon & Rectal Surgery
PROC: 0DNW4ZZ Release Peritoneum, Percutaneous Endoscopic Approach (ICD-10-PCS; 2024-07-31)
PROC: 0FT44ZZ Resection of Gallbladder, Percutaneous Endoscopic Approach (ICD-10-PCS; principal; 2024-07-31 12:00)
DX: K80.00 Calculus of gallbladder with acute cholecystitis without obstruction (principal); Z68.41 Body mass index [BMI] 40.0-44.9, adult; K66.0 Peritoneal adhesions (postprocedural) (postinfection); K76.0 Fatty (change of) liver, not elsewhere classified; K82.8 Other specified diseases of gallbladder; E66.9 Obesity, unspecified; I10 Essential (primary) hypertension; F32.A Depression, unspecified; K21.9 Gastro-esophageal reflux disease without esophagitis; E11.9 Type 2 diabetes mellitus without complications; B18.2 Chronic viral hepatitis C; F17.210 Nicotine dependence, cigarettes, uncomplicated; Z88.5 Allergy status to narcotic agent; Z90.49 Acquired absence of other specified parts of digestive tract; Z79.899 Other long term (current) drug therapy
CPT/HCPCS: 00790; 36415; 51798; 71046; 76705; 80053; 81001; 83036; 83690; 83735; 84100; 85025; 93005; 93010; 94640; 94667; 94760; 94762; 96374; 96375; 96376; 99285-25; 99406; A9270; J0131; J0330; J0696; J1100; J1171; J1650; J1815; J1885; J2003; J2250; J2405; J2704; J3010; J3490; J7030; J7121